=== PATIENT | female | born 1965 | race Caucasian/White ===

== ENCOUNTER 2022-02-07 06:34 | Day surgery (SDC) | payer BC, SELFPAY ==
[2022-02-07] VITALS (7 sets, daily range): BP systolic 115–168; BP diastolic 65–99; PULSE 66–79; RESP 16; TEMP 36.1–36.6; O2SAT 95–99; BMI 39.4
--- NOTE | 2022-02-07 06:43 | SUR.PREOP ---
HOME COVID ANTIGEN TEST DONE NEGATIVE ON 02/07/22 @ 0615.
[2022-02-07] MEDS: SODIUM CHLORIDE 0.9 % (FLUSH) 10 ML SYRINGE IVF (07:00)
[2022-02-07] MEDS: LACTATED RINGERS 1000 ML 1,000 ML 100 ML IV (07:00)
[2022-02-07] MEDS: fentaNYL 100 MCG/2 ML inj IVP (07:17)
[2022-02-07] MEDS: MIDAZOLAM HCL 1 MG/ML inj IVP (07:17)
--- NOTE | 2022-02-07 07:26 | SUR.PREOP ---
TIME?OUT:?0716 PT/RN/MDA?VERIFICATION?OF?SURGICAL?SITE,?PROCEDURE,?AND?CONSENT OBTAINED?PRIOR?TO?INVASIVE?PROCEDURE.
[2022-02-07] MEDS: CEFAZOLIN 2 GM in 0.9 % SODIUM CHLORIDE Mini-bag 100 ML IVPB (07:55)
--- NOTE | 2022-02-07 08:03 | W.PM.NB ---
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 Images saved: Yes Medications given in 5ml increments after negative aspiration: Ropivicaine %: 0.5 mL: 15 Needle gauge: 22 and Lidocaine %: 2 mL: 15 Needle gauge: 22 Patient tolerated procedure well: Yes Additional comments: Needle noted adjacent to nerve Block Charges Block Charge (with Pro Fee): Brachial Plexus Use of Ultrasound Machine for Block: Yes- US Guidance/pain block
--- NOTE | 2022-02-07 08:37 | P.ORPRC_ITS ---
Procedure Note Date of procedure: 02/07/22 Procedure: PREOPERATIVE DIAGNOSIS: 1. Right volar, radial wrist benign cyst POSTOPERATIVE DIAGNOSIS: 1. Right volar, radial wrist benign cyst PROCEDURE: 1. Right volar, radial wrist benign cyst open excision (8 x 10 x 17 mm) SURGEON: Carlos Rader MD. [employer] FILLING MACHINE OPERATOR: [PAUL Bustamante] - Of note, an web marketing assistant was critical for this case to aid in patient positioning, tissue retraction, limb manipulation/positioning, and closure. ANESTHESIA: Regional block plus MAC IMPLANTS: None TOURNIQUET: 15 minutes at 250 torr COMPLICATIONS: None evident INDICATIONS: The patient is a pleasant 48-year-old female who has experienced right volar, radial wrist growth over the number of months. It becomes painful when she uses the wrist extensively. It also is bothersome with general pressure even at rest. Given the failure of nonoperative management, and how this affects daily life, surgery was recommended. DESCRIPTION OF PROCEDURE: Following a thorough discussion of risks, benefits, and alternatives consent was obtained and the operative extremity was marked. The patient was brought to the operating room and placed supine on the operating table. No antibiotics were administered as this was planned to be a local case only. Proper time-out was performed identifying proper patient, site, and procedure. The operative extremity was prepped and draped in the appropriate sterile fashion using ChloraPrep. The limb was exsanguinated and the tourniquet inflated. An incision was made on the volar aspect of the right wrist. Sharp incision through the skin, and blunt dissection through subcutaneous tissue allowed us to protect crossing neurovascular structures. The cyst was immediately encountered with some of the protruding through the volar retinaculum. It was tracked deeper and found to be quite large with various extensions protruding distally towards the thenar musculature, deep towards the wrist/carpus, and proximally along the FPL tendon. (8 x 10 x 17 mm; M-L, sup-deep, prox-distal, respectively.) The radial artery was identified in the case and protected. Tourniquet was released prior to closure to ensure hemostasis. She had excellent capillary refill upon completion of the case. Thorough irrigation normal saline was performed. Closure was performed with 4-0 Monocryl. Soft dressings were applied, and the patient was awoken/transferred to the recovery room in stable condition. PLAN: 1. Encourage elevation of the operative extremity. 2. Range of motion of the operative extremity/digits as tolerated. 3. Ibuprofen, acetaminophen and/or Percocet as needed for pain. 4. Follow up with PA visit in 12-16 days for wound check and suture removal.
--- NOTE | 2022-02-07 08:47 | W.ANESCHARGE ---
Anesthesia Charges Start Date/Time Anesthesia Start Date: 02/07/22 Anesthesia Start Time: 07:48 Stop Date/Time Anesthesia Stop Date: 02/07/22 Anesthesia Stop Time: 08:46 Summary Emergency: No
--- NOTE | 2022-02-07 10:43 | W.ANESCHARGE ---
Anesthesia Charges Start Date/Time Anesthesia Start Date: 02/07/22 Anesthesia Start Time: 07:48 Stop Date/Time Anesthesia Stop Date: 02/07/22 Anesthesia Stop Time: 08:46 Summary Emergency: No
== END 2022-02-07 09:38 | disposition home or self-care (01) ==
PROVIDERS: PCP Physician Assistant; Visit Provider Orthopaedic Surgery Sports Medicine
PROC: (CPT 25110; principal; 2022-02-07 07:45)
DX: M67.431 Ganglion, right wrist (principal)
CPT/HCPCS: 25110; 01810; 64415; 76942; 88304; J0690; J2250; J2405; J2704; J2795; J3010; J7120